=== PATIENT | female | born 1990 | race Caucasian/White ===

== ENCOUNTER 2022-10-23 14:00 | Outpatient (CLI) | payer SELFPAY ==
[2022-10-23] VITALS (7 sets, daily range): BP systolic 137–146; BP diastolic 85–95; PULSE 82–89; TEMP 36.2; BMI 35.7
[2022-10-23 15:22] LABS: Hematocrit 37.7 % (37-47); Hemoglobin 12.9 g/dL (12.0-15.0); Mean Corp Hgb Conc 34.2 g/dL (32-36); Mean Corpuscular Hgb 29.1 pg (27.0-32.0); Mean Corpuscular Volume 84.9 fL (81-99); Mean Platelet Vol. 11.2 fl (6.2-12.0); Platelet Count 162 K/mm3 (150-450); RBC Distribution Width SD 39.2 fl (35.1-43.9); Red Blood Count 4.44 M/mm3 (4.2-5.4); White Blood Count 9.7 K/mm3 (4.4-11.0)
[2022-10-23 15:31] LABS: Protein, Urine (Random) < 6.0 mg/dL (<11.9); Protein:Creat Ratio 251 mg/g CRE (0-200)
[2022-10-23 15:32] LABS: AST(SGOT) 13 U/L (15-37); Alanine Aminotransfer ALT/SGPT 17 U/L (13-56); Creatinine, Serum 0.65 mg/dL (0.55-1.02); EST Glomerular Filtration Rate 112 mL/min (>60); Est Glom Filt Rate - Afr Amer 136 mL/min (>60); Estimated Creatinine Clearance 108.29 ml/min; Uric Acid 3.4 mg/dL (2.6-6.0)
--- NOTE | 2022-10-23 15:43 | US_ITS ---
STUDY: SECOND AND THIRD TRIMESTER OBSTETRICAL ULTRASOUND - LIMITED REASON FOR EXAM: Female, 32 years old growth scan, fluid and placenta check LMP: PRIOR ULTRASOUND: None. TECHNIQUE: Transabdominal TECHNICAL QUALITY: Adequate. FINDINGS: There is a single intrauterine fetus. The fetus is in a cephalic presentation. There is demonstrated cardiac activity with a heart rate of 141 bpm. There is a normal amniotic fluid volume. The largest amniotic fluid pocket measures 6.27 cm. The amniotic fluid index (MAGDI) is 16.6 cm. The placenta is right lateral and not low-lying There are Grade 1 placental changes. The cervix measures 4.8 cm in length. BIOMETRY: BPD: 8.56 cm: 34 weeks, 4 days HC: 31.18 cm: 34 weeks, 6 days AC: 30.1 cm: 34 weeks, 0 days FL: 6.6 cm: 34 weeks, 0 days age by current US: 34 weeks, 2 days. FERNANDA by current US: December 02, 2022. Estimated weight: 2383 grams, +/- 357 grams, 36 percentile. US/OB Limited With Biometrics IMPRESSION: Viable intrauterine gestation approximately 34-35 weeks gestational age. No significant abnormality Electronically Signed: Christian Almeida MD at 17:07 EST ,
[2022-10-23] MEDS: Betamethasone/Betamethasone 30 MG/5 ML Vial 12 MG IM (16:48)
[2022-10-23 17:14] LABS: Bacteria 0 SEEN /hpf (None Seen); Mucous, Urine 0 SEEN /hpf (<or=2+); Red Blood Cells-Urine 0 SEEN /hpf (0-5); Squamous Epithelial Cells - UA 0 SEEN /hpf (5-10); White Blood Cells 0 SEEN /hpf (0-5)
[2022-10-23 17:18] LABS: Color, Urine Yellow (Yellow); Glucose, Dipstick Normal (Normal); Ketone-Dipstick Negative (Negative); Leukocyte Esterase-Dipstick Negative /ul (Negative); Nitrite-Dipstick Negative (Negative); Occult Blood-Urine Negative /ul (Negative); Protein-Dipstick Negative (Negative); Urine Bilirubin Dipstick Negative (Negative); Urine Clarity Clear (Clear); Urine Urobilinogen Normal (Normal)
[2022-10-23 17:34] LABS: Amphetamine Urine VISTA NEGATIVE (<1000 ng/mL); Barbiturate Urine VISTA NEGATIVE (< 200 ng/mL); Benzodiazepine Urine VISTA NEGATIVE (< 200 ng/mL); Cocaine Urine VISTA NEGATIVE (< 300 ng/mL); Ecstacy Urine VISTA NEGATIVE (< 500 ng/mL); Methadone Urine VISTA NEGATIVE (< 300 ng/mL); PCP Urine VISTA NEGATIVE (< 25 ng/mL); THC Urine VISTA NEGATIVE (< 50 ng/mL); Vista UDS pH Range 8
[2022-10-23 18:36] LABS: HIV - WCH Non-Reactive (Nonreactive); Hepatitis B Surface Antigen Non-Reactive (Nonreactive); Hepatitis C Antibody Non-Reactive (Nonreactive); Rubella IgG Non-Reactive (Nonreactive); Syphilis Antibodies Non-reactive
--- NOTE | 2022-10-27 13:01 | OB.TRI.PN_ITS ---
Progress Notes Date of Service: 10/23/22 Progress Note: Patient presents for triage evaluation secondary to elevated bps with louise omid care, patient now going to transfer care to [facility] FHT: 140s Moderate variability reactive no decelerations category I tracing [place]: no regular Contractions Assessment and plan: gestational hypertension Reactive NST, steroid shot given, growth us done and WNL. reassuring maternal and status patient discharged to home to follow-up in office. See problem list details for additional plan information. Laboratory Studies: Laboratory Tests 10/23/22 10/23/22 10/23/22 Range/Units 16:55 16:55 16:55 WBC (4.4-11.0) K/mm3 RBC (4.2-5.4) M/mm3 Hgb (12.0-15.0) g/dL Hct (37-47) % MCV (81-99) fL MCH (27.0-32.0) pg MCHC (32-36) g/dL RDW Std Deviation (35.1-43.9) fl RDW Coeff of Heike (11.6-14.6) % Plt Count (150-450) K/mm3 MPV (6.2-12.0) fl Creatinine (0.55-1.02) mg/dL Estim Creat Clear Calc ml/min Est GFR (MDRD) Af Amer (>60) mL/min Est GFR (MDRD) Non-Af (>60) mL/min Uric Acid (2.6-6.0) mg/dL AST (15-37) U/L ALT (13-56) U/L Urine Color (Yellow) Urine Clarity (Clear) Urine pH (5.0 - 8.0) Ur Specific [place] (1.002-1.030) Urine Protein (Negative) mg/dl Urine Glucose (UA) (Normal) mg/dl Urine Ketones (Negative) mg/dl Urine Occult Blood (Negative) /ul Urine Nitrite (Negative) Urine Bilirubin (Negative) mg/dL Urine Urobilinogen (Normal) mg/dl Ur Leukocyte Esterase (Negative) /ul Urine RBC (0-5) /hpf Urine WBC (0-5) /hpf Ur Squamous Epith Cells (5-10) /hpf Urine Bacteria (None Seen) /hpf Urine Mucus (<or=2+) /hpf U Random Total Protein (<11.9) mg/dL Urine Creatinine (NO RANGE EST.) mg/dL Protein/Creatinin Ratio (0-200) mg/g CRE Urine Opiates Screen NEGATIVE (< 300 ng/mL) Urine Methadone Screen NEGATIVE (< 300 ng/mL) Ur Barbiturates Screen NEGATIVE (< 200 ng/mL) Ur Phencyclidine Scrn NEGATIVE (< 25 ng/mL) Ur Amphetamines Screen NEGATIVE (<1000 ng/mL) MDMA (Ecstasy) Screen NEGATIVE (< 500 ng/mL) U Benzodiazepines Scrn NEGATIVE (< 200 ng/mL) Urine Cocaine Screen NEGATIVE (< 300 ng/mL) U Cannabinoids Screen NEGATIVE (< 50 ng/mL) Ur Drug Screen Comment Syphilis Total Ab Hep Bs Antigen Non-Reactive (Nonreactive) Hepatitis C Antibody Non-Reactive (Nonreactive) HIV 1&2 Antibody Non-Reactive (Nonreactive) Rubella IgG Antibody (Nonreactive) Blood Type A POSITIVE Antibody Screen NEGATIVE 10/23/22 10/23/22 10/23/22 Range/Units 16:55 16:55 14:50 WBC (4.4-11.0) K/mm3 RBC (4.2-5.4) M/mm3 Hgb (12.0-15.0) g/dL Hct (37-47) % MCV (81-99) fL MCH (27.0-32.0) pg MCHC (32-36) g/dL RDW Std Deviation (35.1-43.9) fl RDW Coeff of Heike (11.6-14.6) % Plt Count (150-450) K/mm3 MPV (6.2-12.0) fl Creatinine 0.65 (0.55-1.02) mg/dL Estim Creat Clear Calc 108.29 ml/min Est GFR (MDRD) Af Amer 136 (>60) mL/min Est GFR (MDRD) Non-Af 112 (>60) mL/min Uric Acid 3.4 (2.6-6.0) mg/dL AST 13 L (15-37) U/L ALT 17 (13-56) U/L Urine Color Yellow (Yellow) Urine Clarity Clear (Clear) Urine pH 8.0 (5.0 - 8.0) Ur Specific [place] 1.020 (1.002-1.030) Urine Protein Negative (Negative) mg/dl Urine Glucose (UA) Normal (Normal) mg/dl Urine Ketones Negative (Negative) mg/dl Urine Occult Blood Negative (Negative) /ul Urine Nitrite Negative (Negative) Urine Bilirubin Negative (Negative) mg/dL Urine Urobilinogen Normal (Normal) mg/dl Ur Leukocyte Esterase Negative (Negative) /ul Urine RBC 0 SEEN (0-5) /hpf Urine WBC 0 SEEN (0-5) /hpf Ur Squamous Epith Cells 0 SEEN (5-10) /hpf Urine Bacteria 0 SEEN (None Seen) /hpf Urine Mucus 0 SEEN (<or=2+) /hpf U Random Total Protein (<11.9) mg/dL Urine Creatinine (NO RANGE EST.) mg/dL Protein/Creatinin Ratio (0-200) mg/g CRE Urine Opiates Screen (< 300 ng/mL) Urine Methadone Screen (< 300 ng/mL) Ur Barbiturates Screen (< 200 ng/mL) Ur Phencyclidine Scrn (< 25 ng/mL) Ur Amphetamines Screen (<1000 ng/mL) MDMA (Ecstasy) Screen (< 500 ng/mL) U Benzodiazepines Scrn (< 200 ng/mL) Urine Cocaine Screen (< 300 ng/mL) U Cannabinoids Screen (< 50 ng/mL) Ur Drug Screen Comment Syphilis Total Ab Non-reactive Hep Bs Antigen (Nonreactive) Hepatitis C Antibody (Nonreactive) HIV 1&2 Antibody (Nonreactive) Rubella IgG Antibody Non-Reactive (Nonreactive) Blood Type Antibody Screen 10/23/22 10/23/22 Range/Units 14:50 14:50 WBC 9.7 (4.4-11.0) K/mm3 RBC 4.44 (4.2-5.4) M/mm3 Hgb 12.9 (12.0-15.0) g/dL Hct 37.7 (37-47) % MCV 84.9 (81-99) fL MCH 29.1 (27.0-32.0) pg MCHC 34.2 (32-36) g/dL RDW Std Deviation 39.2 (35.1-43.9) fl RDW Coeff of Heike 13.0 (11.6-14.6) % Plt Count 162 (150-450) K/mm3 MPV 11.2 (6.2-12.0) fl Creatinine (0.55-1.02) mg/dL Estim Creat Clear Calc ml/min Est GFR (MDRD) Af Amer (>60) mL/min Est GFR (MDRD) Non-Af (>60) mL/min Uric Acid (2.6-6.0) mg/dL AST (15-37) U/L ALT (13-56) U/L Urine Color (Yellow) Urine Clarity (Clear) Urine pH (5.0 - 8.0) Ur Specific [place] (1.002-1.030) Urine Protein (Negative) mg/dl Urine Glucose (UA) (Normal) mg/dl Urine Ketones (Negative) mg/dl Urine Occult Blood (Negative) /ul Urine Nitrite (Negative) Urine Bilirubin (Negative) mg/dL Urine Urobilinogen (Normal) mg/dl Ur Leukocyte Esterase (Negative) /ul Urine RBC (0-5) /hpf Urine WBC (0-5) /hpf Ur Squamous Epith Cells (5-10) /hpf Urine Bacteria (None Seen) /hpf Urine Mucus (<or=2+) /hpf U Random Total Protein < 6.0 (<11.9) mg/dL Urine Creatinine 22.30 (NO RANGE EST.) mg/dL Protein/Creatinin Ratio 251 H (0-200) mg/g CRE Urine Opiates Screen (< 300 ng/mL) Urine Methadone Screen (< 300 ng/mL) Ur Barbiturates Screen (< 200 ng/mL) Ur Phencyclidine Scrn (< 25 ng/mL) Ur Amphetamines Screen (<1000 ng/mL) MDMA (Ecstasy) Screen (< 500 ng/mL) U Benzodiazepines Scrn (< 200 ng/mL) Urine Cocaine Screen (< 300 ng/mL) U Cannabinoids Screen (< 50 ng/mL) Ur Drug Screen Comment Syphilis Total Ab Hep Bs Antigen (Nonreactive) Hepatitis C Antibody (Nonreactive) HIV 1&2 Antibody (Nonreactive) Rubella IgG Antibody (Nonreactive) Blood Type Antibody Screen Charges/Coding Procedures Urinary/Genital [id number]: 12094-47 non-stress test Interp Assessment & Plan (1) Gestational hypertension: COMMENT: plan weekly NSTs in office, deliver at 37 (2) : COMMENT: transfer of care- Louise Arias pt.
== END 2022-10-23 17:05 | disposition home or self-care (01) ==
LOC: WPOUT 14:22 → WP 14:23
PROVIDERS: PCP Physician Assistant; Referring Provider Obstetrics & Gynecology; Visit Provider Obstetrics & Gynecology
DX: O13.3 Gestational [pregnancy-induced] hypertension without significant proteinuria, third trimester (principal); Z3A.34 34 weeks gestation of pregnancy
CPT/HCPCS: 36415; 59025; 59050; 76816; 80307; 81001; 82565; 82570; 84156; 84450; 84460; 84550; 85027; 86703; 86762; 86780; 86803; 86850; 86900; 86901; 87340; 99221; G0378; J0702

== ENCOUNTER → 2022-11-03 | Outpatient (CLI) | payer SELFPAY ==
[2022-11-03 14:39] LABS: Protein, Urine (Random) 8.1 mg/dL (<11.9); Protein:Creat Ratio 362 mg/g CRE (0-200)
[2022-11-03 14:42] LABS: Absolute Lymphocyte Count 1.98 X10^3/uL (0.83-4.51); Absolute Neutrophil Count 8.6 X10^3/uL (2.0-7.7); Basophil# 0.06 X10^3/uL; Basophil% 0.5 % (0-1); Eosinophil# 0.13 X10^3/uL; Eosinophils% 1.1 % (0-5); Hematocrit 41.5 % (37-47); Hemoglobin 13.8 g/dL (12.0-15.0); Lymphocyte # 1.98 X10^3/ul (0.83-4.51); Lymphocyte % 16.6 % (19-41); Mean Corp Hgb Conc 33.3 g/dL (32-36); Mean Corpuscular Hgb 28.6 pg (27.0-32.0); Mean Corpuscular Volume 86.1 fL (81-99); Monocyte# 0.97 X10^3/uL; Monocyte% 8.1 % (0-10); NRBC Flagged by Analyzer 0 % (0-5); Neutrophil % 72.3 % (47-70); Platelet Count 192 K/mm3 (150-450); Red Blood Count 4.82 M/mm3 (4.2-5.4); White Blood Count 11.9 K/mm3 (4.4-11.0)
[2022-11-03 15:00] LABS: ALB/GLOB Ratio 0.6 RATIO (0.9-2.4); AST(SGOT) 14 U/L (15-37); Alanine Aminotransfer ALT/SGPT 17 U/L (13-56); Albumin, Serum 2.7 g/dL (3.2-5.0); Alkaline Phosphatase 100 U/L (45-117); Anion Gap 7 (5-15); BUN 6 mg/dL (7-18); BUN/Creat Ratio 10.5 RATIO (10-20); Calcium,Total 9.2 mg/dL (8.5-10.1); Chloride 106 mmol/L (98-107); Creatinine, Serum 0.57 mg/dL (0.55-1.02); EST Glomerular Filtration Rate 131 mL/min (>60); Est Glom Filt Rate - Afr Amer 158 mL/min (>60); Globulin 4.4 g/dL (2.2-4.2); Glucose 106 mg/dL (74-106); Potassium 4.1 mmol/L (3.5-5.1); Protein, Total 7.1 g/dL (6.4-8.2); Sodium Level 138 mmol/L (136-145)
== END | disposition home or self-care (01) ==
PROVIDERS: PCP Physician Assistant; Visit Provider Obstetrics & Gynecology
DX: O13.9 Gestational [pregnancy-induced] hypertension without significant proteinuria, unspecified trimester (principal)
CPT/HCPCS: 36415; 80053; 82570; 84156; 85025; 87081

== ENCOUNTER → 2022-11-03 | Outpatient (CLI) | payer SELFPAY | END | disposition home or self-care (01) | PROVIDERS: PCP Physician Assistant; Referring Provider Obstetrics & Gynecology; Visit Provider Obstetrics & Gynecology | DX: O13.9 Gestational [pregnancy-induced] hypertension without significant proteinuria, unspecified trimester (principal) | CPT/HCPCS: 36415; 80053; 85025 ==

== ENCOUNTER 2022-11-10 07:00 | Inpatient (IN) | payer SELFPAY ==
[2022-11-10] VITALS (98 sets, daily range): BP systolic 123–177; BP diastolic 42–114; PULSE 81–115; RESP 16–18; TEMP 35.8–37.2; O2SAT 93–99; BMI 35.5
--- NOTE | 2022-11-10 | PLAC_PTH ---
PATIENT: RHIANNA SPARKS LOC: [facility] U#:[id number] AGE/SX: ROOM: [facility]016 RE11/10/[address]: Nancy Foote CNM : 1990 BED: 1 DIS: 11/11/2022 SPEC #: [id number] RECD: 11/10/22 18:11 STATUS: SREE REQ #: [id number] ESTER: 11/10/22 00:[address]: Nancy Foote DEPT: SURGICAL PATHOLOGY RECD BY: Raymon Acharya ENTERED: 11/11/22 09:14 SP TYPE: PLACENTA OTHR DR: Stoney Casanova PA-C Tissues: Placenta, NOS Procedures: Surgery Specimen Level V HEADER OPERATION: Vaginal delivery PRE-OP DIAGNOSIS: PEC with severe features TISSUE SUBMITTED: Placenta MICROSCOPIC DIAGNOSIS Placenta: Placental disc - third trimester placenta (475 gm). Membranes - no pathologic diagnosis. Umbilical cord - three blood vessels and no pathologic diagnosis. SJ:rg 11/13/2022 MICROSCOPIC DESCRIPTION Slides are reviewed. GROSS DESCRIPTION SPECIMEN: PLACENTA / CLINICAL INFORMATION: A. Weight: 2.995 kg B. Gestational Age: 37 weeks C. Sex: Male PLACENTAL WEIGHT (POST FIXATION): 475 gm PLACENTAL DIMENSIONS: 16 x 16 x 3 cm PLACENTAL SHAPE: Usual ovoid PLACENTAL WEIGHT FOR GESTATIONAL AGE: Within 10-99th percentile MEMBRANES - Present A. Insertion: Marginal B. Site of rupture from edge: 4 cm from edge of placental disc C. Color of membrane: Montanez-garza D. Abnormalities: None UMBILICAL CORD - Present A. Color: Montanez-garza B. Insertion: Paracentral C. Length: 41 cm D. Diameter: 1.1 cm E. Number of vessels: Three F. Abnormalities: None PLACENTAL DISC - Present A. Color of surface: Montanez-garza B. surface abnormalities: None C. Maternal cotyledons: Intact with minimal tears D. Attached retro placental clot: No clot E. Cut surface: Dark red and spongy F. Lesions: None G. Separate clot: Absent SECTIONS SUBMITTED: 1. Membrane roll 2. Cord, maternal end 3. Cord, end 4. Placental disc, and maternal surfaces 5. Placental disc, and maternal surfaces 6. Placental disc, and maternal surfaces CAROL:arlette 11/12/2022 TC:4 CPT: 60887
[2022-11-10 07:57] LABS: Absolute Lymphocyte Count 1.97 X10^3/uL (0.83-4.51); Absolute Neutrophil Count 7.1 X10^3/uL (2.0-7.7); Basophil# 0.03 X10^3/uL; Basophil% 0.3 % (0-1); Eosinophil# 0.13 X10^3/uL; Eosinophils% 1.3 % (0-5); Hematocrit 38.2 % (37-47); Hemoglobin 13.5 g/dL (12.0-15.0); Lymphocyte # 1.97 X10^3/ul (0.83-4.51); Lymphocyte % 19.6 % (19-41); Mean Corp Hgb Conc 35.3 g/dL (32-36); Mean Corpuscular Hgb 29.5 pg (27.0-32.0); Mean Corpuscular Volume 83.6 fL (81-99); Mean Platelet Vol. 11.5 fl (6.2-12.0); NRBC Flagged by Analyzer 0 % (0-5); Neutrophil # 7.08 X10^3/uL (2.7-7.7); Neutrophil % 70.3 % (47-70); Platelet Count 167 K/mm3 (150-450); RBC Distribution Width CV 13.2 % (11.6-14.6); RBC Distribution Width SD 39.8 fl (35.1-43.9); Red Blood Count 4.57 M/mm3 (4.2-5.4); White Blood Count 10.1 K/mm3 (4.4-11.0)
[2022-11-10] MEDS: Labetalol (Prefilled) 20 MG/4 ML IV ×3 (07:57→17:34)
[2022-11-10] MEDS: 0.9% Normal Saline Single 100 ML IV.SOLN. INTRA-UTER (08:00)
[2022-11-10] MEDS: Lactated Ringers 1,000 ML 50 ML IV (08:00)
[2022-11-10] MEDS: Magnesium Sulfate 4gm/100mL 4 GM/100 ML IV.SOLN. IV (08:08)
[2022-11-10] MEDS: Oxytocin 15 Units/NS 250ml 15 UNITS/250 ML IV.SOLN 2 UNITS IV (08:09)
[2022-11-10 08:10] LABS: AST(SGOT) 16 U/L (15-37); Alanine Aminotransfer ALT/SGPT 13 U/L (13-56); Creatinine, Serum 0.51 mg/dL (0.55-1.02); EST Glomerular Filtration Rate 150 mL/min (>60); Est Glom Filt Rate - Afr Amer 182 mL/min (>60); Estimated Creatinine Clearance 138.02 ml/min; Uric Acid 3.6 mg/dL (2.6-6.0)
[2022-11-10] MEDS: Magnesium Sulfate 4gm/100mL 2 GM/50 ML IV.SOLN. IV (08:30)
[2022-11-10] MEDS: Magnesium Sulfate 20 GM/500 ML BAG IV ×2 (08:43→18:18)
[2022-11-10] MEDS: Labetalol 100 MG Tablet PO ×2 (08:43→22:01)
--- NOTE | 2022-11-10 10:07 | HP.PCM.OB_ITS ---
HPI - General General Date of Admission: 11/10/22 HPI Narrative RHIANNA SPARKS, is a 32 F who presents at 37 weeks for IOL s/p development of pre-eclampsia. was followed primarily by Jessie Potter, nurse staff community health. transfered to practice with development of PEC for high risk care. pt denies headaches. visual changes, epigastric pain today. +FM, no lof/vb. BP upon admission 160s/100-110s. Maternal Data Information FERANNDA Calculator Estimated Delivery Date Method Current WG Current Estimate 11/30/22 LMP (Certain) 37w 1d PFSH PFSH Medical History Pre-eclampsia Home Medications prenat.vits,alina,cez-[id number]-qzidh 1 tab PO DAILY Check with primary doctor 10/23/22 [History Last Taken 11/10/22 05:30] Allergy/AdvReac Type Severity Reaction Status Date / Time No Known Allergies Allergy Verified 11/10/22 07:25 Family History Mother Hypertension Grandfather Myocardial infarction Social History Smoking Status: Never smoker alcohol intake: never substance use type: does not use additional social history: -[place] History 6 Elective abortions Hx Para 5 Spontaneous abortions Hx # Term Pregnancies Ectopic pregnancies Hx # Pregnancies Multiple births # of living children Past Pregnancies Del. Date Name GA/Weeks Outcome Route Bth Weight Gen Labor Lgth Anesthesia Del Locatn Provider FOB 12/31/15 Zelalem 39 live - full term Male none Kirstin Okeefe 12/18/16 Raymon 39 live - full term Male none Home Jessie Okeefe 03/12/18 Stephane 39 live - full term Male none Home Jessie Okeefe 05/14/19 Nata 39 live - full term Female non e Home Jessie Okeefe 03/02/21 Ernestine 39 live - full term Female none Home Jessie Arias/Garrett Okeefe Delivery Date: 12/31/15 Last Updated by: Lashay Mark gestational hypertension, IOL due to hypertension Delivery Date: 12/18/16 Last Updated by: Lashay Mark No issues during or delivery Delivery Date: 03/12/18 Last Updated by: Lashay Mark No issues during or delivery Delivery Date: 05/14/19 Last Updated by: Lashay Mark No issues during or delivery Delivery Date: 03/02/21 Last Updated by: Lashay Mark No issues during or delivery Visit Details Expected Delivery Route/Plan IOL 37 Plans Covid status: discussed Flu vaccine: discussed Tdap vaccine: declined Rhogam: [na LARC form signed: movement and labor precautions reviewed. Problem list reviewed and updated with the most current plan of care details and appropriate orders placed. Relevant counseling for the gestational age provided. Continue routine care and follow up unless otherwise noted in visit notes/problem list details OB Flowsheet Initial Weight: Not Recorded Date -?-?-?-?-?-?-?-?-?-?-?-?- EGA Weight BP Urine Prot -?-?-?-?-?-?-?-?-?-?-?-?- Glucose FHR FuHt Pres Dilation -?-?-?-?-?-?-?-?-?-?-?-?- Effaced St Visit Note 10/30/22 -?-?-?-?-?-?-?-?-?-?-?-?- 35w 4d 205 lb 108/75 144/95 Negative -?-?-?-?-?-?-?-?-?-?-?-?- Negative 150 -?-?-?-?-?-?-?-?-?-?-?-?- JV- NST is react evelin. She has no lof, vaginal bleeding, or dec fm. keeping track of bp's at home and they are 130's/80's-90. no pre-e symptoms. 11/03/22 -?-?-?-?-?-?-?-?-?-?-?-?- 36w 1d 206 lb 8 oz 142/100 Nega tive -?-?-?-?-?-?-?-?-?-?-?-?- Negative 150 -?-?-?-?-?-?-?-?-?-?-?-?- - reviewed pre eclampsia precautions discussed IOL at 37 weeks. schedule for thursday11/06/22 -?-?-?-?-?-?-?-?-?-?-?-?- 36w 4d 207 lb 146/96 Negative -?-?-?-?-?-?-?-?-?-?-?-?- Negative 140 -?-?-?-?-?-?-?-?-?-?-?-?- - no vb lof go od fm no regualr ctx no RODRIGUEZ BV NST FHR Rate Baby A Baseline: 150 Variability:: Moderate Accelerations:: 15 x 15 Decelerations:: Variable (quick resolution. ) NST Reactive:: Yes FHR Category:: Category II Uterine Activity:: occ. ROS Cardiovascular Cardiovascular: Denies abdominal pain, chest pain, diaphoresis, dyspnea, edema or fatigue Respiratory/Chest Respiratory/Chest: Denies change in mental status, chest congestion, chest tightness, cough, shortness of breath at rest, shortness of breath with exertion, breast mass, breast pain, breast skin changes, breast swelling, change in breast shape or nipple discharge Gastrointestinal Gastrointestinal: Denies diarrhea, hemorrhoids, nausea, vomiting or weight changes Genitourinary Genitourinary: Denies abdominal discomfort, burning urination, change in libido, change in urinary stream, contractions, difficulty urinating, dysuria, movement, low back pain, urinary frequency, urinary hesitancy, urinary incontinence or urinary urgency Musculoskeletal Musculoskeletal: Reports none Integumentary Integumentary: Reports none Neurologic Neurologic: Reports none Psychiatric Psychiatric: Reports none Endocrine Endocrinology: Reports none Hematologic/Lymphatic Hematologic/Lymphatic: Reports none Allergic/Immunologic Allergic/Immunologic: Reports none Vital Signs Vital Signs Vital Signs: 11/10/22 07:20 11/10/22 07:20 11/10/22 07:20 Temperature Temperature Source Pulse Rate 115 H Respiratory Rate Respiratory Effort Respiratory Depth Respiratory Pattern Blood Pressure 160/110 H Blood Pressure Mean BP Systolic 160 BP Diastolic 110 Blood Pressure Source Blood Pressure Position Blood Pressure Location Pulse Ox 98 Oxygen Delivery Method 11/10/22 07:36 11/10/22 07:36 11/10/22 07:52 Temperature Temperature Source Pulse Rate 108 H Respiratory Rate Respiratory Effort Respiratory Depth Respiratory Pattern Blood Pressure 162/96 H 157/101 H Blood Pressure Mean BP Systolic 162 157 BP Diastolic 96 101 Blood Pressure Source Blood Pressure Position Blood Pressure Location Pulse Ox Oxygen Delivery Method 11/10/22 07:52 11/10/22 08:07 11/10/22 08:07 Temperature Temperature Source Pulse Rate 99 93 Respiratory Rate Respiratory Effort Respiratory Depth Respiratory Pattern Blood Pressure 140/93 H Blood Pressure Mean BP Systolic 140 BP Diastolic 93 Blood Pressure Source Blood Pressure Position Blood Pressure Location Pulse Ox Oxygen Delivery Method 11/10/22 08:12 11/10/22 08:12 11/10/22 08:17 Temperature Temperature Source Pulse Rate 99 96 Respiratory Rate Respiratory Effort Respiratory Depth Respiratory Pattern Blood Pressure Blood Pressure Mean BP Systolic BP Diastolic Blood Pressure Source Blood Pressure Position Blood Pressure Location Pulse Ox 97 Oxygen Delivery Method 11/10/22 08:17 11/10/22 08:18 11/10/22 08:18 Temperature Temperature Source Pulse Rate 97 Respiratory Rate Respiratory Effort Respiratory Depth Respiratory Pattern Blood Pressure Blood Pressure Mean BP Systolic BP Diastolic Blood Pressure Source Blood Pressure Position Blood Pressure Location Pulse Ox 95 94 Oxygen Delivery Method 11/10/22 08:21 11/10/22 08:21 11/10/22 08:22 Temperature Temperature Source Pulse Rate 90 100 Respiratory Rate Respiratory Effort Respiratory Depth Respiratory Pattern Blood Pressure 136/82 H Blood Pressure Mean BP Systolic 136 BP Diastolic 82 Blood Pressure Source Blood Pressure Position Blood Pressure Location Pulse Ox Oxygen Delivery Method 11/10/22 08:22 11/10/22 08:26 11/10/22 08:26 Temperature Temperature Source Pulse Rate 101 H Respiratory Rate Respiratory Effort Respiratory Depth Respiratory Pattern Blood Pressure Blood Pressure Mean BP Systolic BP Diastolic Blood Pressure Source Blood Pressure Position Blood Pressure Location Pulse Ox 95 95 Oxygen Delivery Method 11/10/22 08:31 11/10/22 08:31 11/10/22 08:33 Temperature Temperature Source Pulse Rate 96 99 Respiratory Rate Respiratory Effort Respiratory Depth Respiratory Pattern Blood Pressure Blood Pressure Mean BP Systolic BP Diastolic Blood Pressure Source Blood Pressure Position Blood Pressure Location Pulse Ox 95 Oxygen Delivery Method 11/10/22 08:33 11/10/22 08:36 11/10/22 08:36 Temperature Temperature Source Pulse Rate 91 Respiratory Rate Respiratory Effort Respiratory Depth Respiratory Pattern Blood Pressure 135/81 H Blood Pressure Mean BP Systolic 135 BP Diastolic 81 Blood Pressure Source Blood Pressure Position Blood Pressure Location Pulse Ox 94 Oxygen Delivery Method 11/10/22 08:37 11/10/22 08:37 11/10/22 07:30 Temperature Temperature Source Temporal Pulse Rate 94 Respiratory Rate Respiratory Effort Respiratory Depth Respiratory Pattern Blood Pressure Blood Pressure Mean BP Systolic BP Diastolic Blood Pressure Source Blood Pressure Position Blood Pressure Location Pulse Ox 95 Oxygen Delivery Method 11/10/22 07:30 11/10/22 08:25 11/10/22 08:42 Temperature 97.0 F L Temperature Source Temporal Pulse Rate 95 Respiratory Rate Respiratory Effort Respiratory Depth Respiratory Pattern Blood Pressure Blood Pressure Mean BP Systolic BP Diastolic Blood Pressure Source Blood Pressure Position Blood Pressure Location Pulse Ox Oxygen Delivery Method 11/10/22 08:42 11/10/22 08:25 11/10/22 08:47 Temperature 96.4 F L Temperature Source Pulse Rate Respiratory Rate Respiratory Effort Respiratory Depth Respiratory Pattern Blood Pressure 137/85 H Blood Pressure Mean BP Systolic 137 BP Diastolic 85 Blood Pressure Source Blood Pressure Position Blood Pressure Location Pulse Ox 94 Oxygen Delivery Method 11/10/22 08:47 11/10/22 08:46 11/10/22 08:45 Temperature 96.5 F L Temperature Source Pulse Rate 89 Respiratory Rate Respiratory Effort Respiratory Depth Respiratory Pattern Blood Pressure Blood Pressure Mean BP Systolic BP Diastolic Blood Pressure Source Blood Pressure Position Blood Pressure Location Pulse Ox 94 Oxygen Delivery Method 11/10/22 08:50 11/10/22 08:50 11/10/22 08:51 Temperature Temperature Source Pulse Rate 95 98 Respiratory Rate Respiratory Effort Respiratory Depth Respiratory Pattern Blood Pressure Blood Pressure Mean BP Systolic BP Diastolic Blood Pressure Source Blood Pressure Position Blood Pressure Location Pulse Ox 93 Oxygen Delivery Method 11/10/22 08:51 11/10/22 08:56 11/10/22 08:56 Temperature Temperature Source Pulse Rate 96 Respiratory Rate Respiratory Effort Respiratory Depth Respiratory Pattern Blood Pressure Blood Pressure Mean BP Systolic BP Diastolic Blood Pressure Source Blood Pressure Position Blood Pressure Location Pulse Ox 95 96 Oxygen Delivery Method 11/10/22 09:02 11/10/22 09:02 11/10/22 09:02 Temperature Temperature Source Pulse Rate 89 Respiratory Rate Respiratory Effort Respiratory Depth Respiratory Pattern Blood Pressure 145/88 H Blood Pressure Mean BP Systolic 145 BP Diastolic 88 Blood Pressure Source Blood Pressure Position Blood Pressure Location Pulse Ox 93 Oxygen Delivery Method 11/10/22 09:06 11/10/22 09:06 11/10/22 09:06 Temperature Temperature Source Pulse Rate 87 Respiratory Rate Respiratory Effort Respiratory Depth Respiratory Pattern Blood Pressure 157/100 H Blood Pressure Mean BP Systolic 157 BP Diastolic 100 Blood Pressure Source Blood Pressure Position Blood Pressure Location Pulse Ox 96 Oxygen Delivery Method 11/10/22 09:11 11/10/22 09:11 11/10/22 09:16 Temperature Temperature Source Pulse Rate 90 Respiratory Rate Respiratory Effort Respiratory Depth Respiratory Pattern Blood Pressure 156/96 H Blood Pressure Mean BP Systolic 156 BP Diastolic 96 Blood Pressure Source Blood Pressure Position Blood Pressure Location Pulse Ox 97 Oxygen Delivery Method 11/10/22 09:16 11/10/22 09:16 11/10/22 09:21 Temperature Temperature Source Pulse Rate 90 89 Respiratory Rate Respiratory Effort Respiratory Depth Respiratory Pattern Blood Pressure Blood Pressure Mean BP Systolic BP Diastolic Blood Pressure Source Blood Pressure Position Blood Pressure Location Pulse Ox 97 Oxygen Delivery Method 11/10/22 09:21 11/10/22 09:26 11/10/22 09:26 Temperature Temperature Source Pulse Rate 95 Respiratory Rate Respiratory Effort Respiratory Depth Respiratory Pattern Blood Pressure 151/101 H Blood Pressure Mean BP Systolic 151 BP Diastolic 101 Blood Pressure Source Blood Pressure Position Blood Pressure Location Pulse Ox 97 Oxygen Delivery Method 11/10/22 09:26 11/10/22 09:31 11/10/22 09:31 Temperature Temperature Source Pulse Rate 86 Respiratory Rate Respiratory Effort Respiratory Depth Respiratory Pattern Blood Pressure Blood Pressure Mean BP Systolic BP Diastolic Blood Pressure Source Blood Pressure Position Blood Pressure Location Pulse Ox 97 98 Oxygen Delivery Method 11/10/22 09:36 11/10/22 09:36 11/10/22 09:41 Temperature Temperature Source Pulse Rate 90 92 Respiratory Rate Respiratory Effort Respiratory Depth Respiratory Pattern Blood Pressure Blood Pressure Mean BP Systolic BP Diastolic Blood Pressure Source Blood Pressure Position Blood Pressure Location Pulse Ox 97 Oxygen Delivery Method 11/10/22 09:41 11/10/22 09:46 11/10/22 09:46 Temperature Temperature Source Pulse Rate 89 Respiratory Rate Respiratory Effort Respiratory Depth Respiratory Pattern Blood Pressure Blood Pressure Mean BP Systolic BP Diastolic Blood Pressure Source Blood Pressure Position Blood Pressure Location Pulse Ox 96 96 Oxygen Delivery Method 11/10/22 09:50 11/10/22 09:50 11/10/22 09:51 Temperature Temperature Source Pulse Rate 85 88 Respiratory Rate Respiratory Effort Respiratory Depth Respiratory Pattern Blood Pressure 157/99 H Blood Pressure Mean BP Systolic 157 BP Diastolic 99 Blood Pressure Source Blood Pressure Position Blood Pressure Location Pulse Ox Oxygen Delivery Method 11/10/22 09:51 11/10/22 10:01 11/10/22 10:01 Temperature Temperature Source Pulse Rate 92 Respiratory Rate Respiratory Effort Respiratory Depth Respiratory Pattern Blood Pressure Blood Pressure Mean BP Systolic BP Diastolic Blood Pressure Source Blood Pressure Position Blood Pressure Location Pulse Ox 97 98 Oxygen Delivery Method 11/10/22 10:05 11/10/22 10:05 11/10/22 10:05 Temperature Temperature Source Temporal Pulse Rate 86 Respiratory Rate Respiratory Effort Respiratory Depth Respiratory Pattern Blood Pressure 149/93 H Blood Pressure Mean BP Systolic 149 BP Diastolic 93 Blood Pressure Source Blood Pressure Position Blood Pressure Location Pulse Ox Oxygen Delivery Method 11/10/22 10:05 11/10/22 08:10 11/10/22 08:25 Temperature 97.0 F L 97.1 F L 96.4 F L Temperature Source Temporal Temporal Pulse Rate 93 91 Respiratory Rate 17 17 Respiratory Effort Normal Normal Respiratory Depth Normal Normal Respiratory Pattern Normal Normal Blood Pressure 140/93 H 136/82 H Blood Pressure Mean 108 100 BP Systolic BP Diastolic Blood Pressure Source Monitor Monitor Blood Pressure Position Semi-Fowlers Semi-Fowlers Blood Pressure Location Left Arm Left Arm Pulse Ox 96 95 Oxygen Delivery Method Room Air Room Air 11/10/22 08:45 11/10/22 09:02 11/10/22 09:16 Temperature 96.5 F L Temperature Source Temporal Pulse Rate 96 89 99 Respiratory Rate 18 18 17 Respiratory Effort Normal Normal Normal Respiratory Depth Normal Normal Normal Respiratory Pattern Normal Normal Normal Blood Pressure 137/85 H 145/88 H 156/96 H Blood Pressure Mean 102 107 116 BP Systolic BP Diastolic Blood Pressure Source Monitor Monitor Monitor Blood Pressure Position Semi-Fowlers Semi-Fowlers Left Lateral Blood Pressure Location Left Arm Left Arm Left Arm Pulse Ox 96 97 98 Oxygen Delivery Method Room Air Room Air Room Air 11/10/22 09:26 11/10/22 10:05 Temperature 97.0 F L Temperature Source Temporal Pulse Rate 90 91 Respiratory Rate 18 18 Respiratory Effort Normal Normal Respiratory Depth Normal Normal Respiratory Pattern Normal Normal Blood Pressure 151/101 H 149/93 H Blood Pressure Mean 117 111 BP Systolic BP Diastolic Blood Pressure Source Monitor Monitor Blood Pressure Position Semi-Fowlers Semi-Fowlers Blood Pressure Location Left Arm Left Arm Pulse Ox 97 98 Oxygen Delivery Method Room Air Room Air Weight Weight: 207 lb Body Mass Index (BMI) 35.5 Physical Exam Const alert, oriented x3 and no apparent distress General Appearance: cooperative, comfortable and well kempt; Negative for in distress Orientation / Consciousness: awake and oriented to person Exam Limitations: no limitations HEENT normocephalic Mouth: oral and palatal mucosa normal Neck full ROM and thyroid normal Chest inspection of chest normal Resp normal respiratory effort Effort and Inspection: able to speak in complete sentences and symmetric chest movement Cardio regular rate Peripheral Pulses: pulses 2+ throughout GI normal to inspection, nondistended, normoactive bowel sounds Inspection: gravid no CVA tenderness and appearance of the vagina normal External Female Exam: normal appearance of the urethra; Negative for external lesion OB / External & Speculum: external exam normal Manual OB Exam: estimated gestational size appropriate and presentation cephalic Uterus Palpation: Negative for uterus tender Extremity normal to inspection Skin no rashes or lesions noted Neuro deep tendon reflexes 2+ bilaterally and gait normal Motor Exam: strength 5/5 throughout and clonus absent Psych Activity / Motor Behavior: appropriate eye contact Speech: normal speech Labs Labs Labs: Blood Type A POSITIVE Antibody Screen NEGATIVE Hct 38.2 % (37-47) Hgb 13.5 g/dL (12.0-15.0) Obstetrics US Syphilis Total Ab Non-reactive Rubella IgG Antibody Non-Reactive (Nonreactive) Hep Bs Antigen Non-Reactive (Nonreactive) HIV 1&2 Antibody Non-Reactive (Nonreactive) Assessment & Plan (1) : QUALIFIERS: Weeks of gestation: 36 weeks Qualified Code(s): Z3A.36 - 36 weeks gestation of COMMENT: GBS neg., transfer of care- Jessie Arias pt. (2) Pre-eclampsia affecting childbirth: COMMENT: plan twice weekly visit in office and delivery at 37, scheduled for 11/10 7am pit/fb. reviewed preeclampsia precautions, call if severe pressures PLAN: Cat 2 tracing with resolution to cat 1 tracing within 20 minutes. (3) Supervision of high-risk : COMMENT: PRR PLAN: Plan Patient presents at 37 weeks for IOL d/t pre-eclampsia. SVE 2/50/-2, medium, midposition. Pain management: plans unmedicated. GBS negative. Management of any complications: PEC -diehl balloon with pitocin for IOL technique -start Magnesium sulfate protocol -hypertension protocol, starting with Labetolol IV and will transition to PO -re-draw PEC labs I have reviewed the [facility] and made any clinically relevant updates. will continue with Co-management with Dr. Lerner for PEC with severe features. she has been updated on admission, POC and agrees with above.
--- NOTE | 2022-11-10 12:56 | PCM.PN.BLA ---
Progress Note arom clear fluid cat I tacing, reviewed bps and controlled with labetalo x 1 IV and oral dose. magnesium sulfate running.
[2022-11-10 12:57] LABS: Protein, Urine (Random) 14.6 mg/dL (<11.9); Protein:Creat Ratio 493 mg/g CRE (0-200)
[2022-11-10 13:01] LABS: Chlamydia Trachomatis by PCR Negative (Negative); Neisserai gonorrhoeae by PCR Negative (Negative); Probe Check PASS; Sample Adequacy Control PASS; Specimen Processing Control PASS
--- NOTE | 2022-11-10 17:12 | EX.PCM.OBRPT ---
Assessment & Plan (1) (spontaneous vaginal delivery): COMMENT: . IOL for PEC at 37. boy:Ham. LC (2) Pre-eclampsia affecting childbirth: COMMENT: magnesium x24 hours labetalol 100mg bid- follow hypertension protocol. PLAN: Plan s/p PPD # 0 1. routine post delivery care 2. breast feeding- support given 3. rh positive 4. rubella immune updated on delivery, BP post . concurs with magnesium sulfate x24 hours, labetolol 20mg now. will continue to co-manage BP . Maternal Data Information FERNANDA Calculator Estimated Delivery Date Method Current WG Current Estimate 11/30/22 LMP (Certain) 37w 1d Vaginal Delivery Maternal Presentation Maternal Presentation: Medically Indicated Induction (PEC at 37 weeks) Type of Induction: Pitocin and [place] [facility] Medical Reason for Induction: Preeclampsia, eclampsia Operative Information Date of Procedure: 11/10/22 Pre-Operative Diagnosis: Post-Operative Diagnosis: Surgery / Procedure Performed: Spontaneous Vaginal Delivery Type of Anesthesia: None Estimated Blood Loss: 150 Time of Delivery: 16:44 Findings Description of Procedure: Patient began pushing and delivered the head in the KIMBERLI presentation. The head was delivered atraumatically on hands and knees. The anterior and posterior shoulders delivered without complication followed by the rest of the infant and the was passed through legs and handed to mom. Delayed cord clamping was employed for approximately 5minutes. Cord was clamped and cut and gentle traction was applied to the cord and the placenta delivered spontaneously immediately following it was noted to be intact with three-vessel cord at 1654. The perineum and vagina were inspected and noted to have no laceration. EBL was 150cc. Patient and tolerated delivery well. Presentation: Vertex Amniotic Membrane Rupture Type: Artificial Time of Membrane Rupture: 1245 Amniotic Fluid Description: Clear Placental Delivery Description: Spontaneous Placenta Disposition: Routine to Lab Cord Vessel Description: 3 Vessels Cord Entanglement: None Infant A Gender: Male (1 minute): 9 (5 minute): 10 Delayed Cord Clamping: Yes Post Vaginal Delivery Medications Given After Delivery: IV Pitocin Episiotomy Description: None Laceration: None Complication Complications: None Addendum Addendum: ATTN NIKKI: CNM DELIVERY, VAGINAL , GLOBAL PACKAGE Multi Select Codes Addendum Addendum: ATT NIKKI: CNM DELIVERY, GLOBAL VAGINAL DELIVERY CHARGE
[2022-11-10] MEDS: 0.9% Saline Lock 10 ML Syringe IV ×2 (17:22→17:34)
[2022-11-10] MEDS: Oxytocin 15 Units/NS 250ml 15 UNITS/250 ML IV.SOLN 83 UNITS IV (17:24)
[2022-11-10 18:13] LABS: Pathology Specimen OB SEE PATHOLOGY REPORT
[2022-11-10] MEDS: Naproxen 500 MG Tablet PO (18:18)
--- NOTE | 2022-11-10 18:21 | NURSING ---
Magnesium Sulfate 500 ml 2gm/hr bag changed @ 1818 and verified with Tai at bedside
[2022-11-11] VITALS (21 sets, daily range): BP systolic 103–155; BP diastolic 60–92; PULSE 75–104; RESP 16; TEMP 35.7–36.7; O2SAT 98
[2022-11-11] MEDS: Magnesium Sulfate 20 GM/500 ML BAG IV (03:59)
[2022-11-11] MEDS: Labetalol 100 MG Tablet PO (10:00)
--- NOTE | 2022-11-11 12:51 | PCM.PN.OB ---
Subjective Subjective late entry from 0700 11/11/22 Patient doing well without complaints. Tolerating PO. Ambulating and voiding without difficulty. Feeding well. Denies chest pain, shortness of breath, calf pain/swelling, fevers, chills, lightheadedness. She is requesting dc to home. Magesium running Objective Data Objective Data Vital Signs: Vital Signs Temp Pulse Resp BP Pulse Ox O2 Del Method 97.3 F L 84 16 132/75 H 98 Room Air 11/11/22 11:09 11/11/22 11:09 11/11/22 11:09 11/11/22 11:09 11/11/22 08:00 11/11/22 11:09 Oxygen Delivery Method Room Air Weight: 207 lb Body Mass Index (BMI) 35.5 Intake & Output: Intake and Output for Last 24 Hours 11/09/22 11/10/22 11/11/22 23:59 23:59 23:59 Intake Total 1798.14 / 1873.14 1881.67 / 1881.67 Output Total 1950 / 1950 1000 / 1000 Balance -151.86 / -76.86 881.67 / 881.67 Lab / Micro Data Result Diagrams: 11/10/22 07:30 11/10/22 07:30 Labs: Laboratory Results - last 24 hr 11/10/22 10:00: Chlam trachomat DNA PCR Negative, N.gonorrhoeae DNA (PCR) Negative 11/10/22 12:00: U Random Total Protein 14.6 H, Urine Creatinine 29.60, Protein/Creatinin Ratio 493 H ROS Constitutional Constitutional: Denies chills, fatigue, fever(s), poor appetite or weakness Eyes Eyes: Denies blurry vision, change in vision, seeing flashes or spots in vision ENT HEENT: Denies dizziness, headache(s), loss taste/smell or sore throat Cardiovascular Cardiovascular: Denies chest pain, dizziness, dyspnea, irregular heart rhythm, palpitations or rapid heart rate Respiratory/Chest Respiratory/Chest: Denies chest tightness, cough, dyspnea or breast pain Gastrointestinal Gastrointestinal: Denies abdominal pain, constipation or vomiting Genitourinary Genitourinary: Denies dysuria or flank pain Musculoskeletal Musculoskeletal: Denies difficulty walking, joint pain, limited range of motion or numbness Neurologic Neurologic: Denies abnormal movements, abnormal speech, dizziness, numbness, seizure-like activity or syncope Psychiatric Psychiatric: Denies anxiety, behavioral changes, change in appetite, confusion, depression or suicidal thoughts Physical Exam Const alert, oriented x3 and no apparent distress General Appearance: cooperative and comfortable Resp normal respiratory effort Cardio regular rate GI normal to inspection, nondistended, normoactive bowel sounds GI Narrative: uterus is firm below umbilicus Palpation: soft Back/Spine no CVA tenderness and thoraco-lumbar ROM normal Extremity normal to inspection, no clubbing, cyanosis or edema, no calf tenderness and no pedal edema Psych mental status grossly normal, thought process normal, cooperative, affect normal, speech normal, activity/motor behavior normal, denies homicidal ideation and denies suicidal ideation Assessment & Plan (1) (spontaneous vaginal delivery): COMMENT: . IOL for PEC at 37. boy:Ham. HIMANSHU (2) : QUALIFIERS: Weeks of gestation: 36 weeks Qualified Code(s): Z3A.36 - 36 weeks gestation of COMMENT: GBS neg., transfer of care- Jessie Arias pt. (3) Pre-eclampsia affecting childbirth: COMMENT: magnesium x24 hours labetalol 100mg bid- follow hypertension protocol. PLAN: dc magnesium now. (4) Supervision of high-risk : COMMENT: PRR PLAN: Plan s/p PPD # 1 1. routine post delivery care 2. breast feeding- support given 3. rh positive 4. rubella immune 5. if bp stable this afternoon will dc to home with labetalol on close observation in office in one week
--- NOTE | 2022-11-11 12:53 | DCINST_ITS ---
Discharge Instructions Diet Discharge Diet: No restrictions Activity Discharge Activity: Return to Normal Activity, May Not Drive (while taking narcotic pain medications.) and May Shower May resume sexual activity in: 4-6 weeks Dressing / Incision Call your doctor if your incision/area has: Continuous Slow Oozing, Sudden Increased Bleeding, Increased Pain/ Swelling, Increased Redness and Foul Smelling Discharge Follow Up Care Please Follow Up With: Radha Spears DO When: Call [phone] to make an appointment with your doctor in 6 weeks. If you had elevated blood pressure or 4th degree laceration, you will need to be seen in 2 weeks. Test Results: Test results from this visit will be discussed in further detail at your follow- up appointment, if applicable. Discharge Plan Admission Admit Date/Time: 11/10/22 07:00 Primary Reason for Your Visit: vaginal delivery Attending Provider: Nancy Foote Primary Care Provider: Stoney Casanova Discharge Orders/Prescriptions Prescriptions: New labetalol 100 mg Tablet 100 mg PO BID 30 Days Qty: 60 0RF naproxen 500 mg tablet 500 mg PO BID PRN (Reason: pain) Qty: 30 0RF No Action Vitamin Tablet 1 tab PO DAILY Referrals / Follow Up: Stoney Casanova PA-C [Primary Care Provider] - Disposition Disposition (needs filled in before D/C Order can be placed): Home, Self Care
== END 2022-11-11 18:00 | disposition home or self-care (01) | DRG 807 ==
PROVIDERS: Obstetrics & Gynecology; Admitting Provider Registered Nurse; PCP Physician Assistant; Referring Provider Registered Nurse; Visit Provider Registered Nurse
DX: O14.94 Unspecified pre-eclampsia, complicating childbirth (principal); Z37.0 Single live birth; Z3A.37 37 weeks gestation of pregnancy
CPT/HCPCS: 59025; 59050; 82565; 82570; 84156; 84450; 84460; 84550; 85025; 86850; 86900; 86901; 87491; 87591; 88307; 99221; J7120; A4216; G0378

== ENCOUNTER 2024-09-27 17:38 | Inpatient (IN) | payer SELFPAY ==
[2024-09-27] VITALS (60 sets, daily range): BP systolic 119–192; BP diastolic 65–107; PULSE 85–115; RESP 14–20; TEMP 36.1–36.8; O2SAT 94–99; BMI 34.7
[2024-09-27] MEDS: Lactated Ringers 1,000 ML 50 ML IV (11:00)
[2024-09-27 11:16] LABS: Absolute Lymphocyte Count 1.67 X10^3/uL (0.83-4.51); Absolute Neutrophil Count 8.8 X10^3/uL (2.0-7.7); Basophil# 0.05 X10^3/uL; Basophil% 0.4 % (0-1); Eosinophil# 0.06 X10^3/uL; Eosinophils% 0.5 % (0-5); Hematocrit 38.1 % (37-47); Hemoglobin 13.6 g/dL (12.0-15.0); Lymphocyte # 1.67 X10^3/ul (0.83-4.51); Lymphocyte % 14.7 % (19-41); Mean Corp Hgb Conc 35.7 g/dL (32-36); Mean Corpuscular Hgb 29.9 pg (27.0-32.0); Mean Corpuscular Volume 83.7 fL (81-99); Mean Platelet Vol. 10.2 fl (6.2-12.0); Monocyte# 0.69 X10^3/uL; Monocyte% 6.1 % (0-10); NRBC Flagged by Analyzer 0 % (0-5); Neutrophil # 8.75 X10^3/uL (2.7-7.7); Neutrophil % 77.1 % (47-70); Platelet Count 185 K/mm3 (150-450); RBC Distribution Width CV 12.8 % (11.6-14.6); RBC Distribution Width SD 38.4 fl (35.1-43.9); Red Blood Count 4.55 M/mm3 (4.2-5.4); White Blood Count 11.4 K/mm3 (4.4-11.0)
[2024-09-27 11:24] LABS: Mucous, Urine 0 SEEN /hpf (<or=2+); Red Blood Cells-Urine 0 SEEN /hpf (0-5)
[2024-09-27 11:27] LABS: Color, Urine Yellow (Yellow); Glucose, Dipstick Normal (Normal); Ketone-Dipstick 15 mg/dl (Negative); Leukocyte Esterase-Dipstick Negative /ul (Negative); Nitrite-Dipstick Negative (Negative); Occult Blood-Urine Negative /ul (Negative); Protein-Dipstick Negative (Negative); Urine Bilirubin Dipstick Negative (Negative); Urine Clarity Clear (Clear); Urine Urobilinogen Normal (Normal)
[2024-09-27 11:34] LABS: Bacteria 1+ /hpf (None Seen); Squamous Epithelial Cells - UA 0-5 SEEN /hpf (5-10); White Blood Cells 0-5 SEEN /hpf (0-5)
[2024-09-27] MEDS: NIFEdipine 10 MG Capsule PO (11:44)
[2024-09-27 11:51] LABS: AST(SGOT) 19 U/L (15-37); Alanine Aminotransfer ALT/SGPT 15 U/L (13-56); EST Glomerular Filtration Rate 149 mL/min (>60); Est Glom Filt Rate - Afr Amer 180 mL/min (>60); Estimated Creatinine Clearance 175.51 ml/min; Uric Acid 3.5 mg/dL (2.6-6.0)
[2024-09-27 11:53] LABS: Protein, Urine (Random) 10.5 mg/dL (<11.9); Protein:Creat Ratio 366 mg/g CRE (0-200)
[2024-09-27 11:54] LABS: Amphetamine Urine VISTA NEGATIVE (<1000 ng/mL); Barbiturate Urine VISTA NEGATIVE (< 200 ng/mL); Benzodiazepine Urine VISTA NEGATIVE (< 200 ng/mL); Cocaine Urine VISTA NEGATIVE (< 300 ng/mL); Ecstacy Urine VISTA NEGATIVE (< 500 ng/mL); Methadone Urine VISTA NEGATIVE (< 300 ng/mL); PCP Urine VISTA NEGATIVE (< 25 ng/mL); THC Urine VISTA NEGATIVE (< 50 ng/mL); Vista UDS pH Range 6
[2024-09-27] MEDS: NIFEdipine 30 MG Tablet PO ×2 (11:54→17:09)
[2024-09-27] MEDS: Labetalol (Prefilled) 20 MG/4 ML Vial IV ×2 (12:45→17:23)
[2024-09-27] MEDS: Magnesium Sulfate 4gm/100mL 4 GM/100 ML IV.SOLN. IV (12:46)
[2024-09-27] MEDS: Magnesium Sulfate 20 GM/500 ML BAG IV ×2 (13:20→22:08)
[2024-09-27] MEDS: Betamethasone/Betamethasone 30 MG/5 ML Vial 12 MG IM (14:21)
--- NOTE | 2024-09-27 14:49 | US_ITS ---
EXAM: US SECOND OR THIRD TRIMESTER , TRANSABDOMINAL CLINICAL INDICATION: pre term TECHNIQUE: Transabdominal obstetrical ultrasound of the maternal pelvis and a second or third trimester with image documentation. COMPARISON: No priors provided from this . FINDINGS: FETUS: Cephalic presentation. HEART RATE: 141 bpm. PRESENTATION: PLACENTA: Grade 1-2, anterior. No placenta previa. No abruption. AMNIOTIC FLUID: Unremarkable. 4.8 cm maximum vertical pocket, 4 quadrant MAGDI 9.9 cm. ANATOMY: Anatomic survey was not performed. BIOMETRICS GESTATIONAL AGE: 32 weeks 3 days. This correlates very well to reported clinical age. FERNANDA: November 19, 2024. EFW: 2000 g +/- 300, 40th percentile. BPD: 32 weeks 6 days. 52nd percentile. HC: 31 weeks 6 days. 67th percentile. AC: 33 weeks 0 days. 63rd percentile. FL: 31 weeks 2 days. 10th percentile. MATERNAL: UTERUS: Unremarkable. No myometrial mass. CERVIX: Not seen. ADNEXA: Not visualized. FREE FLUID: None. US/OB Limited With Biometrics IMPRESSION: Single live intrauterine . Symmetric measurements. 32 weeks 3 days sonographic age corresponds well to clinical age. No acute complications of identified. Nonvisualized cervix and adnexa. Electronically Signed: Yoanna Rod MD at 19:36 EST Reading Location ID and State: [facility] / [place] Tel , Service support ,
--- NOTE | 2024-09-27 17:38 | PCM.HP.OB ---
HPI - General General Date of Admission: 09/27/24 Date of Service: 09/27/24 Chief Complaint: elevated BP at home HPI Narrative RHIANNA SPARKS, is a 34 F who presents c/o increased BP at home. She states her BP are normal between pregnancies but had some elevated BP first and last . States this preganncy BP at home 12s-130s/70s-80s but today up to 140s/90s at home. Last delivered here at 36 5/7 for preeclampsia and was on magnesium. She denies RODRIGUEZ or visual changes or epigastric pain> Good FM. No VB/LOF. No regular ctxs. PFSH PFS Medical History (Updated 09/27/24 @ 17:[address] Qing James MD) (spontaneous vaginal delivery) Pre-eclampsia Home Medications ?Medication ?Instructions ?Recorded ?Last Taken ?Type prenat.vits,alina,iqu-bhcd-ohqtr 1 tab PO DAILY Check with primary 10/23/22 11/10/22 05:30 History doctor labetalol 100 mg tablet 100 mg PO TID 30 days #90 tabs 11/11/22 Unknown Rx naproxen 500 mg tablet 500 mg PO BID PRN pain #30 tabs 11/11/22 Unknown Rx Allergy/AdvReac Type Severity Reaction Status Date / Time No Known Allergies Allergy Verified 11/10/22 07:25 Family History Mother Hypertension Grandfather Myocardial infarction Social History Smoking Status: Never smoker alcohol intake: never substance use type: does not use additional social history: [facility] History 6 Elective abortions Hx Para 5 Spontaneous abortions Hx # Term Pregnancies Ectopic pregnancies Hx # Pregnancies Multiple births # of living children Past Pregnancies Del. Date Name GA/Weeks Outcome Route Bth Weight Infant Gen Labor Lgth Anesthesia Del Locatn Provider FOB 12/31/15 Zelalem 39 live - full term Male none Kirstin Okeefe 12/18/16 Raymon 39 live - full term Male none Home Jessie Okeefe 03/12/18 Stephane 39 live - full term Male none Home Jessie Okeefe 05/14/19 Nata 39 live - full term Female none Home Jessie Okeefe 03/02/21 Ernestine 39 live - full term Female none Home Jessie Arias/Garrett Maldonado 11/10/22 Ham 37 live - full term Male NUHA Foote Delivery Date: 12/31/15 Last Updated by: Lashay Mark gestational hypertension, IOL due to hypertension Delivery Date: 12/18/16 Last Updated by: Lashay Mark No issues during or delivery Delivery Date: 03/12/18 Last Updated by: Lashay Mark No issues during or delivery Delivery Date: 05/14/19 Last Updated by: Lashay Mark No issues during or delivery Delivery Date: 03/02/21 Last Updated by: Lashay Mark No issues during or delivery Delivery Date: 11/10/22 Last Updated by: Lynn Rust IOL PEC NST FHR Rate Baby A Baseline: normal Variability:: Moderate Accelerations:: 15 x 15 Decelerations:: None NST Reactive:: Yes Uterine Activity:: no regular ctxs ROS Constitutional Constitutional: Denies fatigue, fever(s) or malaise Eyes Eyes: Denies change in vision ENT HEENT: Denies dizziness or headache(s) Cardiovascular Cardiovascular: Denies chest pain, dyspnea or lightheadedness Respiratory/Chest Respiratory/Chest: Denies cough or dyspnea Gastrointestinal Gastrointestinal: Denies change in bowel habits Genitourinary Genitourinary: Denies burning urination or genital lesions Integumentary Integumentary: Denies rash Neurologic Neurologic: Denies confusion, dizziness, headache(s), numbness or weakness Vital Signs Vital Signs Vital Signs: 09/27/24 10:38 09/27/24 10:38 09/27/24 10:38 Temperature Temperature Source Tympanic Pulse Rate 95 Respiratory Rate Blood Pressure 176/104 H Blood Pressure Mean BP Systolic 176 BP Diastolic 104 Blood Pressure Source Blood Pressure Position Blood Pressure Location Oxygen Delivery Method 09/27/24 10:38 09/27/24 10:38 09/27/24 10:55 Temperature 97.0 F L Temperature Source Pulse Rate Respiratory Rate 17 Blood Pressure 168/87 H Blood Pressure Mean BP Systolic 168 BP Diastolic 87 Blood Pressure Source Blood Pressure Position Blood Pressure Location Oxygen Delivery Method 09/27/24 10:55 09/27/24 11:10 09/27/24 11:10 Temperature Temperature Source Pulse Rate 92 95 Respiratory Rate Blood Pressure 149/72 H Blood Pressure Mean BP Systolic 149 BP Diastolic 72 Blood Pressure Source Blood Pressure Position Blood Pressure Location Oxygen Delivery Method 09/27/24 11:24 09/27/24 11:24 09/27/24 11:39 Temperature Temperature Source Pulse Rate 92 Respiratory Rate Blood Pressure 152/74 H 145/77 H Blood Pressure Mean BP Systolic 152 145 BP Diastolic 74 77 Blood Pressure Source Blood Pressure Position Blood Pressure Location Oxygen Delivery Method 09/27/24 11:39 09/27/24 11:54 09/27/24 11:54 Temperature Temperature Source Pulse Rate 92 86 Respiratory Rate Blood Pressure 145/80 H Blood Pressure Mean BP Systolic 145 BP Diastolic 80 Blood Pressure Source Blood Pressure Position Blood Pressure Location Oxygen Delivery Method 09/27/24 12:10 09/27/24 12:10 09/27/24 12:18 Temperature Temperature Source Pulse Rate 96 Respiratory Rate Blood Pressure 157/88 H 190/104 H Blood Pressure Mean BP Systolic 157 190 BP Diastolic 88 104 Blood Pressure Source Blood Pressure Position Blood Pressure Location Oxygen Delivery Method 09/27/24 12:18 09/27/24 12:24 09/27/24 12:24 Temperature Temperature Source Pulse Rate 85 103 H Respiratory Rate Blood Pressure 173/107 H Blood Pressure Mean BP Systolic 173 BP Diastolic 107 Blood Pressure Source Blood Pressure Position Blood Pressure Location Oxygen Delivery Method 09/27/24 12:41 09/27/24 12:41 09/27/24 12:55 Temperature Temperature Source Pulse Rate 112 H Respiratory Rate Blood Pressure 192/94 H 168/72 H Blood Pressure Mean BP Systolic 192 168 BP Diastolic 94 72 Blood Pressure Source Blood Pressure Position Blood Pressure Location Oxygen Delivery Method 09/27/24 12:55 09/27/24 12:55 09/27/24 12:55 Temperature 98.1 F Temperature Source Temporal Temporal Pulse Rate 88 88 Respiratory Rate 17 Blood Pressure 168/72 H Blood Pressure Mean 104 BP Systolic BP Diastolic Blood Pressure Source Monitor Blood Pressure Position Semi-Fowlers Blood Pressure Location Right Arm Oxygen Delivery Method Room Air 09/27/24 13:09 09/27/24 13:09 09/27/24 13:25 Temperature Temperature Source Pulse Rate 95 Respiratory Rate Blood Pressure 150/66 H 158/94 H Blood Pressure Mean BP Systolic 150 158 BP Diastolic 66 94 Blood Pressure Source Blood Pressure Position Blood Pressure Location Oxygen Delivery Method 09/27/24 13:25 09/27/24 13:39 09/27/24 13:39 Temperature Temperature Source Pulse Rate 88 96 Respiratory Rate Blood Pressure 143/84 H Blood Pressure Mean BP Systolic 143 BP Diastolic 84 Blood Pressure Source Blood Pressure Position Blood Pressure Location Oxygen Delivery Method 09/27/24 13:54 09/27/24 13:54 09/27/24 14:02 Temperature Temperature Source Temporal Pulse Rate 86 Respiratory Rate Blood Pressure 141/80 H Blood Pressure Mean BP Systolic 141 BP Diastolic 80 Blood Pressure Source Blood Pressure Position Blood Pressure Location Oxygen Delivery Method 09/27/24 14:02 09/27/24 14:24 09/27/24 14:24 Temperature 98.0 F Temperature Source Temporal Pulse Rate 86 90 Respiratory Rate 17 Blood Pressure 141/80 H 171/98 H Blood Pressure Mean 100 BP Systolic 171 BP Diastolic 98 Blood Pressure Source Monitor Blood Pressure Position Sitting Blood Pressure Location Left Arm Oxygen Delivery Method Room Air 09/27/24 14:39 09/27/24 14:39 09/27/24 14:39 Temperature Temperature Source Tympanic Pulse Rate 96 Respiratory Rate Blood Pressure 153/83 H Blood Pressure Mean BP Systolic 153 BP Diastolic 83 Blood Pressure Source Blood Pressure Position Blood Pressure Location Oxygen Delivery Method 09/27/24 14:39 09/27/24 14:43 09/27/24 14:43 Temperature 98.2 F 98.2 F Temperature Source Temporal Temporal Pulse Rate 96 Respiratory Rate 17 Blood Pressure 153/83 H Blood Pressure Mean 106 BP Systolic BP Diastolic Blood Pressure Source Monitor Blood Pressure Position Semi-Fowlers Blood Pressure Location Right Arm Oxygen Delivery Method Room Air 09/27/24 14:54 09/27/24 14:54 09/27/24 15:09 Temperature Temperature Source Pulse Rate 93 Respiratory Rate Blood Pressure 148/83 H 140/82 H Blood Pressure Mean BP Systolic 148 140 BP Diastolic 83 82 Blood Pressure Source Blood Pressure Position Blood Pressure Location Oxygen Delivery Method 09/27/24 15:09 09/27/24 15:24 09/27/24 15:24 Temperature Temperature Source Pulse Rate 98 92 Respiratory Rate Blood Pressure 145/80 H Blood Pressure Mean BP Systolic 145 BP Diastolic 80 Blood Pressure Source Blood Pressure Position Blood Pressure Location Oxygen Delivery Method 09/27/24 15:39 09/27/24 15:39 09/27/24 15:49 Temperature Temperature Source Temporal Pulse Rate 99 Respiratory Rate Blood Pressure 150/87 H Blood Pressure Mean BP Systolic 150 BP Diastolic 87 Blood Pressure Source Blood Pressure Position Blood Pressure Location Oxygen Delivery Method 09/27/24 15:49 09/27/24 15:54 09/27/24 15:54 Temperature 97.0 F L Temperature Source Temporal Pulse Rate 99 93 Respiratory Rate 16 Blood Pressure 150/87 H 152/88 H Blood Pressure Mean 108 BP Systolic 152 BP Diastolic 88 Blood Pressure Source Monitor Blood Pressure Position Semi-Fowlers Blood Pressure Location Left Arm Oxygen Delivery Method Room Air 09/27/24 16:00 09/27/24 16:00 09/27/24 16:09 Temperature 97.0 F L Temperature Source Temporal Temporal Pulse Rate 104 H Respiratory Rate 14 Blood Pressure 162/95 H 159/94 H Blood Pressure Mean 117 BP Systolic 159 BP Diastolic 94 Blood Pressure Source Monitor Blood Pressure Position Semi-Fowlers Blood Pressure Location Left Arm Oxygen Delivery Method Room Air 09/27/24 16:09 09/27/24 16:24 09/27/24 16:24 Temperature Temperature Source Pulse Rate 94 99 Respiratory Rate Blood Pressure 164/96 H Blood Pressure Mean BP Systolic 164 BP Diastolic 96 Blood Pressure Source Blood Pressure Position Blood Pressure Location Oxygen Delivery Method 09/27/24 16:40 09/27/24 16:40 09/27/24 16:54 Temperature Temperature Source Pulse Rate 104 H Respiratory Rate Blood Pressure 162/95 H 134/72 H Blood Pressure Mean BP Systolic 162 134 BP Diastolic 95 72 Blood Pressure Source Blood Pressure Position Blood Pressure Location Oxygen Delivery Method 09/27/24 16:54 09/27/24 17:09 09/27/24 17:09 Temperature Temperature Source Pulse Rate 109 H 109 H Respiratory Rate Blood Pressure 133/74 H Blood Pressure Mean BP Systolic 133 BP Diastolic 74 Blood Pressure Source Blood Pressure Position Blood Pressure Location Oxygen Delivery Method 09/27/24 17:10 09/27/24 17:10 09/27/24 17:19 Temperature 97.1 F L Temperature Source Temporal Temporal Pulse Rate 109 H Respiratory Rate 16 Blood Pressure 133/74 H 156/90 H Blood Pressure Mean 93 BP Systolic 156 BP Diastolic 90 Blood Pressure Source Monitor Blood Pressure Position Semi-Fowlers Blood Pressure Location Left Arm Oxygen Delivery Method Room Air 09/27/24 17:19 09/27/24 17:24 09/27/24 17:24 Temperature Temperature Source Pulse Rate 106 H 115 H Respiratory Rate Blood Pressure 154/94 H Blood Pressure Mean BP Systolic 154 BP Diastolic 94 Blood Pressure Source Blood Pressure Position Blood Pressure Location Oxygen Delivery Method Weight Weight: 91.626 kg Body Mass Index (BMI) 34.7 Physical Exam Const alert and no apparent distress General Appearance: cooperative HEENT normocephalic Resp normal respiratory effort Cardio regular rate GI soft to palpation GI Narrative: gravid, nontender, appropriate for gestational age Extremity no calf tenderness General Extremity: edema Skin no wounds Rashes: No rashes noted Psych activity/motor behavior normal Labs Labs Labs: Blood Type A POSITIVE Antibody Screen NEGATIVE Hct 38.1 % (37-47) Hgb 13.6 g/dL (12.0-15.0) Obstetrics Ultrasound Syphilis Total Ab Non-reactive Rubella IgG Antibody Non-Reactive (Nonreactive) Hep Bs Antigen Non-Reactive (Nonreactive) Hepatitis C Antibody Non-Reactive (Nonreactive) HIV 1&2 Antibody Non-Reactive (Nonreactive) Assessment & Plan (1) High risk multigravida in third trimester: (2) Pre-eclampsia in third trimester: PLAN: preeclampsia vs possible exacerrbation of chronic htn. last baseline prot:creat ration was WNL. Elevated today. Check true 24 hr urine. Other labs normal. HTN emergency protocol initiated to control BP. Magnesium prophylaxis initiated. follow closely consider transport to tertiary care center if moving towards delivery, hopeully we can stabilize bp, give betamehtasone in anticipation of possible delivery and follow closely outpatient. May have regular diet as tolerated when BP stable PN panel done US for growth done (3) Grand multipara in labor in third trimester:
[2024-09-28] VITALS (26 sets, daily range): BP systolic 94–144; BP diastolic 59–87; PULSE 81–102; RESP 14–18; TEMP 36.3–37.4; O2SAT 95–99
[2024-09-28 06:51] LABS: Hematocrit 36.6 % (37-47); Hemoglobin 12.5 g/dL (12.0-15.0); Mean Corp Hgb Conc 34.2 g/dL (32-36); Mean Corpuscular Hgb 29.2 pg (27.0-32.0); Mean Corpuscular Volume 85.5 fL (81-99); Mean Platelet Vol. 10.3 fl (6.2-12.0); Platelet Count 183 K/mm3 (150-450); RBC Distribution Width SD 39.3 fl (35.1-43.9); Red Blood Count 4.28 M/mm3 (4.2-5.4); White Blood Count 12.7 K/mm3 (4.4-11.0)
[2024-09-28 07:15] LABS: ALB/GLOB Ratio 0.7 RATIO (0.9-2.4); AST(SGOT) 14 U/L (15-37); Alanine Aminotransfer ALT/SGPT 13 U/L (13-56); Albumin, Serum 2.6 g/dL (3.2-5.0); Alkaline Phosphatase 71 U/L (45-117); Anion Gap 7 (5-15); BUN 7 mg/dL (7-18); BUN/Creat Ratio 16.5 RATIO (10-20); Calcium,Total 7.1 mg/dL (8.5-10.1); Chloride 105 mmol/L (98-107); Creatinine, Serum 0.42 mg/dL (0.55-1.02); EST Glomerular Filtration Rate 183 mL/min (>60); Est Glom Filt Rate - Afr Amer 221 mL/min (>60); Estimated Creatinine Clearance 208.94 ml/min; Globulin 3.8 g/dL (2.2-4.2); Glucose 118 mg/dL (74-106); Potassium 3.7 mmol/L (3.5-5.1); Protein, Total 6.4 g/dL (6.4-8.2); Sodium Level 134 mmol/L (136-145)
[2024-09-28] MEDS: Magnesium Sulfate 20 GM/500 ML BAG IV (08:07)
[2024-09-28] MEDS: Lactated Ringers 1,000 ML 50 ML IV (08:08)
--- NOTE | 2024-09-28 08:45 | PCM.PN.OB ---
Subjective Subjective 24 hour urine collection in progress. Mild headache. Declined tylenol. BP has been normal range. S/p BMZ x 1. Next dose at 1400. Objective Data Objective Data Vital Signs: Vital Signs Temp Pulse Resp BP Pulse Ox O2 Del Method 97.6 F L 91 16 144/87 H 96 Room Air 09/28/24 07:42 09/28/24 07:43 09/28/24 07:42 09/28/24 07:43 09/28/24 07:42 09/28/24 07:42 Oxygen Delivery Method Room Air Weight: 91.626 kg Body Mass Index (BMI) 34.7 Intake & Output: Intake and Output for Last 24 Hours 09/26/24 09/27/24 09/28/24 23:59 23:59 23:59 Intake Total 1640 / 1640 2699.17 / 2699.17 Output Total 1600 / 1600 1550 / 1550 Balance 40 / 40 1149.17 / 1149.17 Lab / Micro Data 09/28/24 06:31 09/28/24 06:31 Labs: Laboratory Results - last 24 hr 09/27/24 11:00: WBC 11.4 H, RBC 4.55, Hgb 13.6, Hct 38.1, MCV 83.7, MCH 29.9, MCHC 35.7, RDW Std Deviation 38.4, RDW Coeff of Heike 12.8, Plt Count 185, MPV 10.2, Immature Gran % (Auto) 1.200 H, Neut % (Auto) 77.1 H, Lymph % (Auto) 14.7 L, [place] % (Auto) 6.1, Eos % (Auto) 0.5, Baso % (Auto) 0.4, Absolute Neuts (auto) 8.8 H, Absolute Lymphs (auto) 1.67, Nucleated RBC % 0, Creatinine 0.50 L, Estim Creat Clear Calc 175.51, Est GFR (MDRD) Af Amer 180, Est GFR (MDRD) Non-Af 149, Uric Acid 3.5, AST 19, ALT 15 09/27/24 11:15: Urine Color Yellow, Urine Clarity Clear, Urine pH 7.0, Ur Specific [place] 1.010, Urine Protein Negative, Urine Glucose (UA) Normal, Urine Ketones 15 H, Urine Occult Blood Negative, Urine Nitrite Negative, Urine Bilirubin Negative, Urine Urobilinogen Normal, Ur Leukocyte Esterase Negative, Urine RBC 0 SEEN, Urine WBC 0-5 SEEN, Ur Squamous Epith Cells 0-5 SEEN, Urine Bacteria 1+, Urine Mucus 0 SEEN, U Random Total Protein 10.5, Urine Creatinine 28.70, Protein/Creatinin Ratio 366 H, Urine Opiates Screen NEGATIVE, Urine Methadone Screen NEGATIVE, Ur Barbiturates Screen NEGATIVE, Ur Phencyclidine Scrn NEGATIVE, Ur Amphetamines Screen NEGATIVE, MDMA (Ecstasy) Screen NEGATIVE, U Benzodiazepines Scrn NEGATIVE, Urine Cocaine Screen NEGATIVE, U Cannabinoids Screen NEGATIVE, Ur Drug Screen Comment , Blood Type A POSITIVE, Antibody Screen NEGATIVE 09/28/24 06:31: WBC 12.7 H, RBC 4.28, Hgb 12.5, Hct 36.6 L, MCV 85.5, MCH 29.2, MCHC 34.2, RDW Std Deviation 39.3, RDW Coeff of Heike 13.0, Plt Count 183, MPV 10.3, Sodium 134 L, Potassium 3.7, Chloride 105, Carbon Dioxide 21.0, Anion Gap 7, BUN 7, Creatinine 0.42 L, Estim Creat Clear Calc 208.94, Est GFR (MDRD) Af Amer 221, Est GFR (MDRD) Non-Af 183, BUN/Creatinine Ratio 16.5, Glucose 118 H, Calcium 7.1 L, Total Bilirubin 0.30, AST 14 L, ALT 13, Alkaline Phosphatase 71, Total Protein 6.4, Albumin 2.6 L, Globulin 3.8, Albumin/Globulin Ratio 0.7 L Micro: Microbiology 09/27/24 20:23 Urine, Clean Catch Chlamydia/Neisseria (PCR) - Final 09/27/24 20:23 Genital vaginal Group B Streptococcus (PCR) - Final Radiography Diagnostic Testing: Radiology Impression Obstetrics Ultrasound 09/27/24 14:49 IMPRESSION: Single live intrauterine . Symmetric measurements. 32 weeks 3 days sonographic age corresponds well to clinical age. No acute complications of identified. Nonvisualized cervix and adnexa. Electronically Signed: Yoanna Rod MD at 19:36 EST Reading Location ID and State: [facility] / [place] Tel , Service support , ROS Constitutional Constitutional: Reports headache(s); Denies fever(s) or malaise ENT HEENT: Denies dizziness Cardiovascular Cardiovascular: Denies chest pain, dyspnea or lightheadedness Respiratory/Chest Respiratory/Chest: Denies cough or dyspnea Gastrointestinal Gastrointestinal: Denies change in bowel habits Genitourinary Genitourinary: Denies burning urination or genital lesions Integumentary Integumentary: Denies rash Neurologic Neurologic: Denies confusion, dizziness, headache(s), numbness or weakness Physical Exam Const alert and no apparent distress General Appearance: cooperative HEENT normocephalic Resp normal respiratory effort GI GI Narrative: gravid, nontender, appropriate for gestational age Psych activity/motor behavior normal NST FHR Rate Baby A Baseline: 120 Variability:: Moderate Decelerations:: None FHR Category:: Category I Uterine Activity:: none Assessment & Plan (1) Hypertension complicating : QUALIFIERS: Trimester: third trimester Qualified Code(s): O16.3 - Unspecified maternal hypertension, third trimester (2) 32 weeks gestation of : PLAN: Plan Complete BMZ. Await 24 hour urine.
[2024-09-28] MEDS: NIFEdipine 60 MG Tablet PO (10:06)
[2024-09-28] MEDS: Docusate Sodium 100 MG Capsule 200 MG PO (10:07)
[2024-09-28] MEDS: Prenatal Vits Tablet 1 TABLET PO (14:40)
[2024-09-28] MEDS: Betamethasone/Betamethasone 30 MG/5 ML Vial 12 MG IM (14:41)
[2024-09-28 15:39] LABS: 24 Hour Urine Protein 472.9 mg/24HR (<150 MG/24HR); 24HR. UA Prot. Total Volume 4875 mL; Urine Protein (24 Hour) 9.7 mg/dL (<11.9)
[2024-09-29 04:56] VITALS: PULSE 77; O2SAT 96
[2024-09-29 04:58] VITALS: BP 111/75; PULSE 75; RESP 16; TEMP 36.3
--- NOTE | 2024-09-29 07:57 | PCM.PN.OB ---
Subjective Subjective BP has been controlled for 24 hours. Headache resolved with discontinuation of magnesium. Good movement. Elevated 24 hour urine protein. Is S/p BMZ x 2. Procardia 60 mg daily. Does have a BP cuff at home. Plan for US next week in office. Reviewed precautions with patient. Expect delivery at 37 weeks unless worsening condition. Objective Data Objective Data Vital Signs: Vital Signs Temp Pulse Resp BP Pulse Ox O2 Del Method 97.4 F L 75 16 111/75 96 Room Air 09/29/24 04:58 09/29/24 04:58 09/29/24 04:58 09/29/24 04:58 09/29/24 04:56 09/28/24 13:15 Oxygen Delivery Method Room Air Weight: 91.626 kg Body Mass Index (BMI) 34.7 Intake & Output: Intake and Output for Last 24 Hours 09/27/24 09/28/24 09/29/24 23:59 23:59 23:59 Intake Total 1640 / 1640 4078.34 / 4078.34 Output Total 1600 / 1600 3300 / 3300 Balance 40 / 40 778.34 / 778.34 Lab / Micro Data 09/28/24 06:31 09/28/24 06:31 Labs: Laboratory Results - last 24 hr 09/27/24 14:05: Urine Collection Time 24.0, Timed Urine Volume 4875, Ur Total Protein 24 Hr 472.9 H, Urine Total Protein 9.7 Micro: Microbiology 09/27/24 20:23 Urine, Clean Catch Chlamydia/Neisseria (PCR) - Final 09/27/24 20:23 Genital vaginal Group B Streptococcus (PCR) - Final Physical Exam Const alert and no apparent distress General Appearance: cooperative HEENT normocephalic Resp normal respiratory effort GI soft to palpation GI Narrative: gravid, nontender, appropriate for gestational age Extremity no calf tenderness General Extremity: edema Skin no wounds Rashes: No rashes noted Psych activity/motor behavior normal NST FHR Rate Baby A FHR Category:: Category I Assessment & Plan (1) Hypertension complicating : QUALIFIERS: Trimester: third trimester Qualified Code(s): O16.3 - Unspecified maternal hypertension, third trimester (2) 32 weeks gestation of : (3) Pre-eclampsia in third trimester: (4) Grand multipara in labor in third trimester: PLAN: Plan s/p magnesium 24 hour urine completed s/p BMZ procardia 60 mg daily repeat vitals and NST prior to discharge
--- NOTE | 2024-09-29 08:06 | PCM.DC.SUM ---
Providers Date of Admission: 09/27/24 Date of Discharge: 09/29/24 Primary Care Physician: Stoney Casanova PA-C Reason For Visit: PRE E VS POSSIBLE EXACERRBATION OF CHRONIC HTN Diagnosis Discharge Diagnosis (1) Hypertension complicating : Status: Acute Code(s): O16.9 - Unspecified maternal hypertension, unspecified trimester Qualifiers: Trimester: third trimester Qualified Code(s): O16.3 - Unspecified maternal hypertension, third trimester (2) 32 weeks gestation of : Status: Acute Code(s): Z3A.32 - 32 weeks gestation of (3) Pre-eclampsia in third trimester: Status: Acute Code(s): O14.93 - Unspecified pre-eclampsia, third trimester (4) Grand multipara in labor in third trimester: Status: Acute Code(s): O80 - Encounter for full-term uncomplicated delivery Plan s/p magnesium 24 hour urine completed s/p BMZ procardia 60 mg daily repeat vitals and NST prior to discharge Medications at Discharge Home Medications prenat.vits,alina,png-hnak-trmle 1 tab PO DAILY Check with primary doctor 10/23/22 nifedipine 60 mg tablet,extended release 24 hr 60 mg PO DAILY #30 tabs 09/29/24 Hospital Course Operations None Procedures None Summary of Care Provided Minutes Spent on Discharge: 20 Hospital Course: Admitted with elevated BP. Chronic HTN vs Pre E. Protein/creatinine ratio elevated. BP treated with labetalol x2 and Procardia. BP controlled with oral meds. Did receive magnesium x 24 hours. BMZ x 2 Asymptomatic. Physical Exam Const alert and no apparent distress General Appearance: cooperative HEENT normocephalic Resp normal respiratory effort GI soft to palpation GI Narrative: gravid, nontender, appropriate for gestational age Extremity no calf tenderness General Extremity: edema Skin no wounds Rashes: No rashes noted Psych activity/motor behavior normal Weight / BMI Weight Weight: 91.626 kg Body Mass Index (BMI) 34.7 ABG / Lab / Microbiology Data 09/28/24 06:31 09/28/24 06:31 Laboratory: Laboratory Results - last 24 hr 09/27/24 14:05: Urine Collection Time 24.0, Timed Urine Volume 4875, Ur Total Protein 24 Hr 472.9 H, Urine Total Protein 9.7 Microbiology: Microbiology 09/27/24 20:23 Urine, Clean Catch Chlamydia/Neisseria (PCR) - Final 09/27/24 20:23 Genital vaginal Group B Streptococcus (PCR) - Final D/C Instructions Discharge Diet: No restrictions Discharge Activity: Return to Normal Activity May resume sexual activity in: No Restrictions Call your doctor if you observe: Fever of 101 or Higher and Chest pain DC O2, CPAP, BIPAP Needs Home O2 Discharge instructions: No Additional Instructions: Monitor BP daily. Call for BPs consistently above 140/90. Needs to report RODRIGUEZ, vision disturbances or abdominal pain. Follow up in office next week for US and OB appointments Please Follow Up With: Qing James MD Meaningful Use Info Meaningful Use Meaningful Use Diagnoses (Choose all that apply): None applicable Ischemic Stroke Statin Dosing Therapy Reference: STATIN DOSE THERAPY REFERENCE: * Patients > 75 years receive moderate or high dose statin therapy. * Patients 75 years or YOUNGER should receive HIGH intensity statin dose unless contraindicated. You will be required to document reason for non-treatment if statin daily dose does not meet guidelines. HIGH DOSE STATIN THERAPY DAILY Atorvastatin > than or = to 40 mg Rosuvastatin > than or = to 20 mg Amlodipine + Atorvastatin > than or = to 2.5/40 mg Ezetimibe + Simvastatin 10/80 mg Simvastatin 80mg Discharge Plan Admission Admit Date/Time: 09/27/24 17:38 Primary Reason for Your Visit: elevated BP Attending Provider: Qing James Primary Care Provider: Stoney Casanova Discharge Orders/Prescriptions Prescriptions: New nifedipine 60 mg Tablet Extended Release 24hr 60 mg PO DAILY Qty: 30 1RF Continued prenat.vits,alina,[id number] Tablet 1 tab PO DAILY Discontinued naproxen 500 mg tablet 500 mg PO BID PRN (Reason: pain) Qty: 30 0RF labetalol 100 mg tablet 100 mg PO TID 30 Days Qty: 90 0RF Referrals / Follow Up: Stoney Casanova, [place] [Primary Care Provider] - Disposition Disposition (needs filled in before D/C Order can be placed): Home, Self Care
[2024-09-29 08:52] VITALS: BP 130/73; PULSE 86; RESP 22; TEMP 36.6; O2SAT 97
[2024-09-29 08:54] VITALS: PULSE 89; O2SAT 97
[2024-09-29] MEDS: NIFEdipine 60 MG Tablet PO (08:58)
[2024-09-29 09:19] LABS: HIV - WCH Non-Reactive (Nonreactive); Rubella IgG Non-Reactive (Nonreactive); Syphilis Antibodies Non-reactive
[2024-09-29 09:27] LABS: Hepatitis B Surface Antigen Non-Reactive (Nonreactive); Hepatitis C Antibody Non-Reactive (Nonreactive)
== END 2024-09-29 10:30 | disposition home or self-care (01) | DRG 833 ==
LOC: WPOUT 09-28 11:58 → WP 09-28 11:58
PROVIDERS: Admitting Provider Obstetrics & Gynecology; PCP Physician Assistant; Referring Provider Obstetrics & Gynecology; Visit Provider Obstetrics & Gynecology
DX: O11.3 Pre-existing hypertension with pre-eclampsia, third trimester (principal); O09.43 Supervision of pregnancy with grand multiparity, third trimester; Z3A.32 32 weeks gestation of pregnancy; Z79.899 Other long term (current) drug therapy
CPT/HCPCS: 36415; 59025; 59050; 76816; 80053; 80307; 81001; 81050; 82565; 82570; 84156; 84450; 84460; 84550; 85025; 85027; 86703; 86762; 86780; 86803; 86850; 86900; 86901; 87340; 87491; 87591; 87653; 96372; 99221; J7120; G0378; J0702